=== PATIENT | female | born 1935 | race Hispanic/Latino ===

== ENCOUNTER 2024-05-01 07:19 | Inpatient (IN) | payer OTHER ==
[2024-05-01] VITALS (43 sets, daily range): BP systolic 91–156; BP diastolic 32–90; PULSE 58–110; RESP 12–20; O2SAT 78–100
[~2024-05-01] VITALS: Ht 152.4 cm; Wt 95.3 kg
[2024-05-01] MEDS ORDERED: LIDOCAINE HCL 400MG/20ML VIAL ONE (07:24)
[2024-05-01] MEDS ORDERED: SODIUM BICARB 50MEQ 50ML VIAL 50 ML ONE (07:24)
[2024-05-01] MEDS ORDERED: NITROGLYCERIN 50MG VIAL ONE (07:25)
[2024-05-01] MEDS: DOPAMINE 800MG/D5 250ML 250 ML IV ONE (07:25)
[2024-05-01] MEDS ORDERED: BIVALIRUDIN 250 MG/VIAL IV ONE (07:25)
[2024-05-01] MEDS ORDERED: HEPARIN 10,000 UNIT/10ML (1,000 UNIT/ML) VIAL ONE (07:25)
[2024-05-01] MEDS ORDERED: IOHEXOL 350 MG/ML 100ML INFUS..BTL IV ONE (07:25)
[2024-05-01] MEDS ORDERED: ATROPINE 1MG SYG IVP ONE ×3 (07:26→08:58)
[2024-05-01] MEDS ORDERED: DOPAMINE HCL 400 MG/D5%-WATER 0 ML IV ONE (07:28)
[2024-05-01] MEDS: HEPARIN 25,000 UNITS/250ML D5W 250 ML IV ONE (07:43)
[2024-05-01 07:49] LABS: BASOPHILS # (AUTO) 0.08 K/uL (0.00-0.20); BASOPHILS % (AUTO) 0.5 % (0.0-5.0); EOSINOPHILS # (AUTO) 0.31 K/uL (0.00-0.70); HEMATOCRIT 31.9 % (36-48); IMMATURE GRANULOCYTE ABSOLUTE 0.12 K/uL (0-1); LYMPHOCYTES # (AUTO) 2.9 K/uL (1.0-4.8); LYMPHOCYTES % (AUTO) 18.3 % (21.0-51.0); MEAN CORPUSCULAR HEMOGLOBIN 29.6 pg (27.0-33.0); MEAN CORPUSCULAR HGB CONC 31.3 g/dL (32.0-36.0); MEAN CORPUSCULAR VOLUME 94.4 fL (79-99); MONOCYTES # (AUTO) 0.6 K/uL (0.1-1.0); MONOCYTES % (AUTO) 3.8 % (3.0-13.0); NEUTROPHILS # (AUTO) 11.6 K/uL (1.8-7.7); NEUTROPHILS % (AUTO) 74.6 % (40.0-77.0); PLATELET COUNT (AUTO) 241 K/uL (130-400); RED BLOOD CELL COUNT(AUTO) 3.38 MIL/uL (4.00-5.50); RED CELL DISTRIBUTION WIDTH 14.5 % (11.0-15.5); WHITE BLOOD COUNT (AUTO) 15.6 K/uL (4.8-10.8)
[2024-05-01 07:59] LABS: INR 0.98 (0.85-1.15); PROTHROMBIN TIME 10.6 SEC (9.6-11.6)
[2024-05-01] MEDS ORDERED: HEPARIN 25,000 UNITS/250ML D5W 250 ML IV PRN (08:00)
[2024-05-01] MEDS: ASPIRIN 325MG TAB PO ONE (08:00)
[2024-05-01 08:07] LABS: ALBUMIN 2.5 g/dL (3.5-5.0); BILIRUBIN,TOTAL 0.4 mg/dL (0.2-1.0); CREATININE 3.1 mg/dL (0.5-1.0); MAGNESIUM 1.7 mg/dL (1.80-2.40); POTASSIUM 4.7 mmol/L (3.5-5.1); TOTAL PROTEIN, SERUM 5.9 g/dL (6.0-8.3)
[2024-05-01] MEDS: ASPIRIN 300 MG SUPPOSITORY PR ONE (08:21)
[2024-05-01] MEDS: HEPARIN 5,000 UNIT VIAL ONE (08:21)
[2024-05-01] MEDS: ATROPINE 1MG SYG IVP SCH (08:22)
[2024-05-01] MEDS ORDERED: ALBUTEROL 0.083% 2.5 MG/3 ML INH IH PRN (08:30)
[2024-05-01] MEDS ORDERED: DiphenhydrAMINE HCL 50 MG/ML VIAL IV PRN (08:30)
[2024-05-01] MEDS ORDERED: GLUCAGON 1MG KIT 1 MG ML IM PRN (08:30)
[2024-05-01] MEDS ORDERED: MAG/ALUM/SIMETH 30 ML UDCUP PO PRN (08:30)
[2024-05-01] MEDS ORDERED: HYDRALAZINE 20MG/ML VIAL IV PRN (08:30)
[2024-05-01] MEDS ORDERED: ACETAMINOPHEN 325 MG TAB PO PRN ×3 (08:30)
[2024-05-01] MEDS ORDERED: GUAIFENESIN-DM 200/20 MG 10 ML PO PRN (08:30)
[2024-05-01] MEDS ORDERED: DEXTROSE 50%-WATER 50 ML DISP.SYRIN IV PRN (08:30)
[2024-05-01] MEDS ORDERED: KETOROLAC 15MG/ML VIAL (15MG/ML) IV PRN (08:30)
[2024-05-01] MEDS ORDERED: MORPHINE 2 MG SYG IVP PRN ×2 (08:30→23:30)
[2024-05-01] MEDS ORDERED: ONDANSETRON 4MG INJ IV PRN (08:30)
[2024-05-01] MEDS ORDERED: NITROGLYCERIN 0.4 MG SL TAB SL PRN (08:30)
[2024-05-01] MEDS ORDERED: DOPAMINE 800MG/D5 250ML 250 ML IV SCH (08:30)
[2024-05-01] MEDS ORDERED: LACTULOSE 20 GM/30 ML UDCUP PO PRN (08:30)
[2024-05-01] MEDS: PHARMACY COMMUNICATION MISC ONE (08:30)
[2024-05-01] MEDS ORDERED: ZOLPIDEM TARTRATE 5 MG TAB PO PRN (08:30)
[2024-05-01] MEDS ORDERED: MAGNESIUM 2GM PREMIX 50ML 50 ML IV PRN (08:30)
[2024-05-01] MEDS ORDERED: NOREPINEPHRINE BITARTRATE 1 MG/1 ML ML IV ONE ×2 (08:59→09:00)
[2024-05-01] MEDS ORDERED: EPTIFIBATIDE 2 MG/ML 10 ML VIAL IVP ONE ×2 (09:43→10:04)
[2024-05-01] MEDS ORDERED: EPTIFIBATIDE 75MG/100ML BOTTLE 100 ML IV ONE (09:44)
[2024-05-01] MEDS ORDERED: PROPOFOL 1000 MG/100 ML 100 ML IV ONE (10:04)
[2024-05-01] MEDS ORDERED: HEPARIN 25,000 UNITS/250ML D5W 250 ML IV ONE (10:05)
[2024-05-01] MEDS ORDERED: PROPOFOL 1000 MG/100 ML IV PRN (10:30)
[2024-05-01] MEDS ORDERED: NOREPINEPHRIN 8MG/250ML NS 250 ML IV SCH (10:30)
[2024-05-01] MEDS ORDERED: EPTIFIBATIDE 75MG/100ML BOTTLE 100 ML IV SCH (10:30)
[2024-05-01] MEDS ORDERED: MIDAZOLAM HCL 50 MG in 0.9%NACL 50ML 50 ML IV SCH (11:00)
[2024-05-01] MEDS ORDERED: RENAL DOSE IV PRN (11:30)
[2024-05-01] MEDS ORDERED: LEVOFLOXACIN 500 MG/D5W 100 ML 100 ML IV SCH (11:30)
[2024-05-01 11:46] LABS: ABG BASE EXCESS -15.3 mmol/L (-2.0-3.0); ABG HCO3 12.5 mmol/L (21.0-28.0); ABG OXYGEN SATURATION 99.3 % (95.0-99.0); ABG PCO2 36 mmHg (32-45); ABG PH 7.154 (7.35-7.450); CARBON MONOXIDE 0.3; HHb 0.7; PO2, ARTERIAL BG 284.7 mmHg (83.0-108.0); VENT MODE, BG AC (ROOM AIR)
[2024-05-01 12:11] LABS: THYROID STIMULATING HORMONE 4.62 uIU/mL (0.36-3.74)
[2024-05-01] MEDS: SODIUM BICARB 50MEQ 50ML VIAL IV ONE ×2 (12:26→14:31)
[2024-05-01] MEDS: HEPARIN 25,000 UNITS/250ML D5W 250 ML IV SCH (12:27)
[2024-05-01] MEDS ORDERED: NOREPINEPHRIN 4MG/NS 250ML 250 ML IV SCH (12:30)
[2024-05-01] MEDS: PHARMACY COMMUNICATION MISC SCH (12:30)
[2024-05-01] MEDS: FENTANYL 2500MCG+NS 250ML 250 ML IV SCH (12:34)
[2024-05-01] MEDS: MIDAZOLAM 50MG-0.9% NS 50ML 50 ML IV SCH (12:35)
[2024-05-01] MEDS: CLOPIDOGREL 300MG TAB GT ONE (12:36)
[2024-05-01] MEDS: 0.9%NACL 1000ML 1,000 ML IV SCH (12:37)
[2024-05-01] MEDS: FENTANYL 2500MCG+NS 250ML 250 ML IV ONE (12:38)
[2024-05-01] MEDS: FAMOTIDINE 20MG VIAL IV SCH (13:02)
[2024-05-01] MEDS: ZOSYN 3.375GM+NS 50ML 50 ML IV SCH (13:02)
[2024-05-01] MEDS: LEVOFLOXACIN 500 MG/D5W 100 ML 100 ML IV ONE (13:03)
[2024-05-01] MEDS: INSULIN HUMULIN R 100 UNIT/ML 3ML SQ SCH (13:05)
[2024-05-01] MEDS ORDERED: METRONIDAZOLE 500MG/100ML BAG 100 ML IVPB SCH (14:00)
[2024-05-01 14:04] LABS: ABG BASE EXCESS -5.1 mmol/L (-2.0-3.0); ABG HCO3 17.5 mmol/L (21.0-28.0); ABG OXYGEN SATURATION 99.4 % (95.0-99.0); ABG PCO2 27 mmHg (32-45); ABG PH 7.429 (7.35-7.450); PO2, ARTERIAL BG 194.7 mmHg (83.0-108.0); VENT MODE, BG AC (ROOM AIR)
[2024-05-01] MEDS: HEPARIN 5,000 UNIT VIAL IV ONE (14:14)
[2024-05-01 16:50] LABS: ABG BASE EXCESS -1.7 mmol/L (-2.0-3.0); ABG HCO3 20.2 mmol/L (21.0-28.0); ABG OXYGEN SATURATION 95.5 % (95.0-99.0); ABG PCO2 25 mmHg (32-45); ABG PH 7.519 (7.35-7.450); CARBON MONOXIDE 0.3; HHb 4.5; PO2, ARTERIAL BG 71.5 mmHg (83.0-108.0); VENT MODE, BG AC (ROOM AIR)
[2024-05-01 18:03] LABS: APPEARANCE,URINE CLEAR (CLEAR); BILIRUBIN,URINE NEGATIVE (NEGATIVE); COLOR,URINE LIGHT-YELLOW (YELLOW); GLUCOSE, URINE (UA) 200 mg/dL (NEGATIVE); KETONES,URINE 5 mg/dL (NEGATIVE); LEUKOCYTE ESTERASE ,URINE 500 Leu/uL (NEGATIVE); NITRATE,URINE NEGATIVE (NEGATIVE); OCCULT BLOOD,URINE SMALL (NEGATIVE); PH,URINE 5.5 (5.0-8.0); PROTEIN,URINE NEGATIVE (NEGATIVE); UROBILINOGEN,URINE 0.2 mg/dL (0.2-1.0)
[2024-05-01 18:06] LABS: CREATININE,URINE RANDOM 17.07 mg/dL (30-135)
[2024-05-01 18:10] LABS: BACTERIA,URINE MOD /HPF (None Seen); MUCUS,URINE RARE LPF (None Seen); SQUAMOUS EPITHELIAL CELL,UR RARE /HPF (0-2); WBC,URINE 26-50 /HPF (0-1)
[2024-05-01] MEDS: IPRATROPIUM 0.5 MG/2.5 ML INH IH SCH (18:58)
[2024-05-01] MEDS ORDERED: LORAZEPAM 2 MG/ML 1 ML VIAL IVP PRN (23:30)
[2024-05-02] MEDS ORDERED: CLOPIDOGREL 75MG TAB GT SCH (09:00)
[2024-05-02] MEDS ORDERED: ASPIRIN 81MG CHEW TAB GT SCH (09:00)
[2024-05-02] MEDS ORDERED: THIAMINE HCL 100 MG/ML 2ML VIAL IVP SCH (09:00)
[2024-05-03] MEDS ORDERED: LEVOFLOXACIN 250 MG/D5W 50ML 50 ML IVPB SCH (12:00)
== END 2024-05-02 01:05 | DRG 270 ==
LOC: EDH 07:19 → EDHIP 07:20 → 2CH 09:23
PROVIDERS: ADMIT Internal Medicine; ATTEND Internal Medicine
PROC: 02703DZ Dilation of Coronary Artery, One Artery with Intraluminal Device, Percutaneous Approach (ICD-10-PCS; principal; 2024-05-01)
PROC: 5A02210 Assistance with Cardiac Output using Balloon Pump, Continuous (ICD-10-PCS; 2024-05-01)
PROC: 4A023N7 Measurement of Cardiac Sampling and Pressure, Left Heart, Percutaneous Approach (ICD-10-PCS; 2024-05-01)
PROC: B2111ZZ Fluoroscopy of Multiple Coronary Arteries using Low Osmolar Contrast (ICD-10-PCS; 2024-05-01)
PROC: 0BH17EZ Insertion of Endotracheal Airway into Trachea, Via Natural or Artificial Opening (ICD-10-PCS; 2024-05-01)
PROC: 5A1935Z Respiratory Ventilation, Less than 24 Consecutive Hours (ICD-10-PCS; 2024-05-01)
DX: I21.02 ST elevation (STEMI) myocardial infarction involving left anterior descending coronary artery (principal); J96.01 Acute respiratory failure with hypoxia; N17.0 Acute kidney failure with tubular necrosis; E46 Unspecified protein-calorie malnutrition; E87.20 Acidosis, unspecified; G93.40 Encephalopathy, unspecified; I13.0 Hypertensive heart and chronic kidney disease with heart failure and stage 1 through stage 4 chronic kidney disease, or unspecified chronic kidney disease; Z68.41 Body mass index [BMI] 40.0-44.9, adult; D64.9 Anemia, unspecified; E11.22 Type 2 diabetes mellitus with diabetic chronic kidney disease; E78.00 Pure hypercholesterolemia, unspecified; E83.42 Hypomagnesemia; F03.90 Unspecified dementia, unspecified severity, without behavioral disturbance, psychotic disturbance, mood disturbance, and anxiety; I25.10 Atherosclerotic heart disease of native coronary artery without angina pectoris; I46.9 Cardiac arrest, cause unspecified; I50.9 Heart failure, unspecified; M10.9 Gout, unspecified; Z66 Do not resuscitate; N18.9 Chronic kidney disease, unspecified; R57.0 Cardiogenic shock; Z51.5 Encounter for palliative care; Z85.3 Personal history of malignant neoplasm of breast; Z88.0 Allergy status to penicillin; Z90.12 Acquired absence of left breast and nipple; Z90.710 Acquired absence of both cervix and uterus; Z95.5 Presence of coronary angioplasty implant and graft
CPT/HCPCS: 31500; 33967; 36415; 70450; 71045; 76770; 80051; 80053; 81001; 82435; 82550; 82570; 82803; 82947; 82948; 83605; 83735; 83880; 83935; 84132; 84295; 84439; 84443; 84481; 84484; 85018; 85025; 85347; 85610; 85730; 87040; 87071; 87086; 87205; 93005; 93306; 93356; 93454; 94002; 94640; 96365; 96375; A4344; C1769; C1887; C1894; C9600; C9606; G0378; J0461; J0583; J1265; J1327; J1644; J1815; J1956; J2543; J2704; J3010; J3490; Q9967; C1725; C1874; Q9965